=== PATIENT | male | born 1965 | race Caucasian/White ===

== ENCOUNTER 2016-11-29 10:28 | Emergency (ER) | payer OTHER ==
[2016-11-29 10:39] VITALS: BP 120/81; PULSE 69; RESP 16; TEMP 97.7; O2SAT 96
[2016-11-29] MEDS ORDERED: TDAP ADULT 0.5 ML INJ (BOOSTRIX) IM ONE (10:39)
--- NOTE | 2016-11-29 10:53 | EDPHY ---
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 His tetanus is not up-to-date so he came in for a tetanus immunization and wound treatment. He admits apprehension about leg wounds and suturing because of a history in his 20s of a staph infection to sutured leg laceration required hospitalization with 3 days of IV antibiotics. ROS: Integumentary: No other injuries. Neuro: No numbness or tingling 5 point ROS is otherwise negative Past Medical/Surgical History: Previous staph skin infection from affected leg wound on the right side in his 20s Skin boils Social History: Works for a [employer] Smoking Status: Current some day smoker Physical Exam: Physical Exam Vital signs are normal. General: No acute distress HEENT: Atraumatic. Eyes: Pupils equal and react to light. Extraocular motions are intact. Lungs: No respiratory distress. Cardiac: Brisk capillary refill is intact throughout. Pulses are 2+ and symmetric in the affected extremity. Skin: No rash or pallor. The patient has a 1.5 cm full-thickness laceration with subcutaneous tissue evident at the base of the wound and mild active bleeding oriented vertically just superior to the patella on the left knee. No foreign bodies appreciated on direct examination. Neuro: Alert and oriented x3 with no sensorimotor deficits. Constitutional: Initial Vital Signs Temperature (C) 36.5 C 11/29/16 10:29 Heart Rate 69 11/29/16 10:29 Respiratory Rate 16 11/29/16 10:29 Blood Pressure 120/81 H 11/29/16 10:29 O2 Sat (%) 96 11/29/16 10:29 O2 Delivery Mode Room Air Allergies/Adverse Reactions: No Known Allergies Allergy (Verified 11/29/16 10:38) Home Medications: Medication Instructions Recorded NK [No Known Home Meds] 11/29/16 MDM/Departure - MDM Procedures: The wound is 1.5 cm, full-thickness described physical exam. The wound was copiously irrigated with saline. The wound was explored for foreign bodies and none were found. The wound was prepped and draped in the normal sterile fashion. The wound was anesthetized using a 50 50 mix of 0.5% Marcaine and 1% plain lidocaine-3 mL with a 27 gauge needle with good effect. The edges were reapproximated using 4 0 Prolene on a PC 3 needle-5 running sutures with good hemostasis and cosmesis. The patient tolerated the procedure well. There were no complications. A dressing and Thiago wrap were applied by our tech. I counseled the patient regarding wound care. Medications Given: Discontinued Medications Diphtheria/Tetanus/Acell Pertussis (Boostrix) 0.5 ml IM .ONCE ONE Stop: 11/29/16 10:40 Last Admin: 11/29/16 10:43 Dose: 0.5 ml - Depart Disposition: Home, Routine, Self-Care Clinical Impression: Leg laceration Qualifiers: Encounter type: initial encounter Laterality: left Qualified Code(s): S81.812A - Laceration without foreign body, left lower leg, initial encounter Condition: Good Instructions: Care For Your Stitches (ED) Additional Instructions: Diagnosis: Leg laceration Plan: Keep the wound clean for the next 2 days, then clean daily with warm soapy water Ibuprofen Tylenol for discomfort as needed Work as tolerated - avoid hyperflexion of the knee over the next few days. Return for suture removal in 10-12 days. Return sooner if he develops redness, discharge or other concerns for infection. Stand Alone Forms: Work Comp Follow Up Referrals: NONE *PRIMARY CARE P,. [Primary Care Provider] - As per Instructions
== END 2016-11-29 11:21 | disposition home or self-care (01) ==
LOC: CED 10:28
PROC: 0HQLXZZ Repair Left Lower Leg Skin, External Approach (ICD-10-PCS; principal; 2016-11-29)
DX: S81.812A Laceration without foreign body, left lower leg, initial encounter (principal); F17.200 Nicotine dependence, unspecified, uncomplicated; Z23 Encounter for immunization; W29.3XXA Contact with powered garden and outdoor hand tools and machinery, initial encounter; Y92.69 Other specified industrial and construction area as the place of occurrence of the external cause